=== PATIENT | female | born 1965 | race Caucasian/White ===

== ENCOUNTER → 2016-10-05 | Outpatient (CLI) | payer BC ==
--- NOTE | 2016-10-08 13:12 | MM ---
Reason for exam: screening (asymptomatic). Last mammogram was performed 1 year ago. History: Patient is postmenopausal. Physical Findings: A clinical breast exam by your physician is recommended on an annual basis and results should be correlated with mammographic findings. MG Screening Mammo w CAD Bilateral CC and MLO view(s) were taken. Prior study comparison: October 05, 2015, bilateral MG screening mammo w CAD. September 14, 2014, bilateral MG screening mammo w CAD. September 11, 2013, bilateral digital screening mammo w/CAD. The breast tissue is heterogeneously dense. This may lower the sensitivity of mammography. No significant changes when compared with prior studies. ASSESSMENT: Negative, BI-RAD 1 RECOMMENDATION: Routine screening mammogram of both breasts in 1 year.
== END | disposition home or self-care (01) ==
LOC: RADMAMWWP 08:31
PROVIDERS: ATTEND Internal Medicine
DX: Z12.31 Encounter for screening mammogram for malignant neoplasm of breast (principal)

== ENCOUNTER 2017-01-31 11:55 | Emergency (ER) | payer BC ==
[2017-01-31 12:09] VITALS: BP 130/79; PULSE 67; RESP 18; TEMP 98.5
[2017-01-31] MEDS ORDERED: KETOROLAC 60 MG/2 ML VIAL IM STA (12:13)
--- NOTE | 2017-01-31 12:17 | ED ---
General Adult HPI - General Chief complaint: Fall Stated complaint: fall Time Seen by Provider: 01/31/17 12:11 Source: patient, RN notes reviewed Mode of arrival: ambulatory Limitations: no limitations - History of Present Illness Initial comments: 51-year-old female presents emergency Department with a chief complaint of left- sided rib pain and left-sided hip pain after fall. Patient states that she was walking her dogs and she tripped on the wet grass. Patient states she now has pain to her left hip area as well as to her left rib. Patient states that last night she tried to go to work without success states she woke up with continued pain so she thought that she should be seen. There was no head injury with this incident. There is been no nausea vomiting. The patient states that it's tender to touch over the left side of her ribs as well as over her left pelvis bone. She has been able to ambulate. She has no low central back pain. There is no change the bar bladder habits or any saddle anesthesia. There is been no radiation pain down the legs. Patient states is just a constant type pain. Patient denies any recent fever, chills, shortness of breath, chest pain, back pain, abdominal pain, nausea vomiting, numbness or tingling, dysuria or hematuria, constipation or diarrhea, headaches or visual changes, or any other current symptoms. - Related Data Previous Rx's Medication Instructions Recorded Hydrocodone/Acetaminophen [Elizabeth 1 each PO Q6HR PRN #20 tab 01/31/17 5-325] Allergies Allergy/AdvReac Type Severity Reaction Status Date / Time No Known Allergies Allergy Verified 01/31/17 12:09 Review of Systems ROS Statement: Those systems with pertinent positive or pertinent negative responses have been documented in the HPI. ROS Other: All systems not noted in ROS Statement are negative. Past Medical History Past Medical History: No Reported History Additional Past Medical History / Comment(s): 4 herniated discs in back. History of Any Multi-Drug Resistant Organisms: None Reported Past Surgical History: Orthopedic Surgery Past Psychological History: No Psychological Hx Reported Smoking Status: Current every day smoker Past Alcohol Use History: Occasional Past Drug Use History: None Reported General Exam - General Exam Comments Initial Comments: General: The patient is awake and alert, in no distress, and does not appear acutely ill. Eye: Pupils are equal, round and reactive to light, extra-ocular movements are intact; there is normal conjunctiva bilaterally. No signs of icterus. Ears, nose, mouth and throat: There are moist mucous membranes and no oral lesions. Neck: The neck is supple, there is no tenderness. Cardiovascular: There is a regular rate and rhythm. No murmur, rub or gallop is appreciated. Respiratory: Lungs are clear to auscultation, respirations are non-labored, breath sounds are equal. No wheezes, stridor, rales, or rhonchi. Tenderness over the left lateral rib cage and the posterior rib cage. Gastrointestinal: Soft, non-distended, non-tender abdomen without masses or organomegaly noted. There is no rebound or guarding present. No CVA tenderness. Bowel sounds are unremarkable. Back: There is no tenderness to palpation in the midline. There is no obvious deformity. No rashes noted. Musculoskeletal: Normal ROM, mild tenderness over the left pelvic bone. There is no pedal edema. There is no calf tenderness or swelling. Sensation intact. Pulses equal bilaterally 2+. Neurological: CN II-XII intact, There are no obvious motor or sensory deficits. Coordination appears grossly intact. Speech is normal. Skin: Skin is warm and dry and no rashes or lesions are noted. Psychiatric: Cooperative, appropriate mood & affect, normal judgment. Limitations: no limitations Course Vital Signs 01/31/17 12:05 Temperature 98.5 F Pulse Rate 67 Respiratory 18 Rate Blood Pressure 130/79 O2 Sat by Pulse 100 Oximetry Medical Decision Making - Medical Decision Making 51-year-old female presents emergency Department with a chief complaint of fall. This time patient underwent x-rays of her pelvis and her ribs where her tenderness is. This and they are negative. This was discussion was at his left -sided rib fracture. and left pelvic contusion. We discussed pain control. We discussed care for this. We discussed return parameters and follow-up and all the patient's questions. They stated they understood and they are in agreement plan. All questions have been answered. They'll be discharged. - Radiology Data Radiology results: report reviewed, image reviewed Disposition Clinical Impression: Fall, Contusion of left hip, Left rib fracture Disposition: HOME SELF-CARE Condition: Stable Instructions: Contusion in Adults (ED), Rib Fracture (ED) Additional Instructions: Please use medication as discussed. Please follow up with family doctor if symptoms have not improved over the next two days. Please return to the emergency room if your symptoms increase or worsen or for any other concerns. Prescriptions: Hydrocodone/Acetaminophen [Elizabeth 5-325] 1 each PO Q6HR PRN #20 tab PRN Reason: Pain Referrals: Ines Tolbert MD [Primary Care Provider] - 1-2 days Time of Disposition: 12:50
--- NOTE | 2017-01-31 12:43 | XR ---
EXAMINATION TYPE: XR ribs LT w pa chest xray DATE OF EXAM: 01/31/2017 CLINICAL HISTORY: Pain after a fall yesterday TECHNIQUE: Single frontal view of the chest is obtained. COMPARISON: None FINDINGS: There is no focal air space opacity, pleural effusion, or pneumothorax seen. The cardiac silhouette size is within normal limits. There is a solitary nondisplaced fracture of the posterior r im 8 on the left. IMPRESSION: 1. Acute solitary nondisplaced posterior rib fracture of rib 8 on the left. 2. No acute cardiopulmonary process.
--- NOTE | 2017-01-31 12:46 | XR ---
EXAMINATION TYPE: XR pelvis AP view DATE OF EXAM: 01/31/2017 CLINICAL HISTORY: Fall and pain in the pelvis. TECHNIQUE: A single AP view of the pelvis is obtained. COMPARISON: None. FINDINGS: There is no acute fracture/dislocation evident in the pelvis. The hip and sacroiliac join ts appear symmetric and unremarkable. Moderate degenerative changes of the femoral acetabular joints are seen as acetabular sourcil subchondral cysts, cephalad joint space narrowing, and acetabular scle rosis. Degenerative changes of the lumbosacral spine are also appreciated. The overlying soft tissue appears unremarkable. Probable old healed fracture of the right inferior pubic ramus seen as there is an osseous protuberance inferiorly towards the pubic symphysis. IMPRESSION: 1. There is no acute fracture or dislocation in the pelvis. 2. Degenerative changes of the femoral acetabular joints, lumbosacral spine, and probable old fractur e of the right inferior pubic ramus.
== END 2017-01-31 12:59 | disposition home or self-care (01) ==
LOC: EC 11:55
DX: S22.32XA Fracture of one rib, left side, initial encounter for closed fracture (principal); S70.02XA Contusion of left hip, initial encounter; F17.200 Nicotine dependence, unspecified, uncomplicated; W01.0XXA Fall on same level from slipping, tripping and stumbling without subsequent striking against object, initial encounter
CPT/HCPCS: 71101; 72170; 99283; 96372; J1885

== ENCOUNTER → 2017-10-30 | Outpatient (CLI) | payer BC ==
--- NOTE | 2017-11-01 08:54 | MM ---
Reason for exam: screening (asymptomatic). Last mammogram was performed 1 year and 1 month ago. History: Patient is postmenopausal. Physical Findings: A clinical breast exam by your physician is recommended on an annual basis and results should be correlated with mammographic findings. MG Screening Mammo w CAD Bilateral CC and MLO view(s) were taken. Prior study comparison: October 05, 2016, bilateral MG screening mammo w CAD. October 05, 2015, bilateral MG screening mammo w CAD. The breast tissue is heterogeneously dense. This may lower the sensitivity of mammography. No significant changes when compared with prior studies. ASSESSMENT: Benign, BI-RAD 2 RECOMMENDATION: Routine screening mammogram of both breasts in 1 year.
== END | disposition home or self-care (01) ==
LOC: RADMAMWWP 08:34
PROVIDERS: ATTEND Internal Medicine
DX: Z12.31 Encounter for screening mammogram for malignant neoplasm of breast (principal)
CPT/HCPCS: 77067

== ENCOUNTER 2018-04-23 11:42 | Inpatient (IN) | payer BC ==
[2018-04-23] MEDS ORDERED: AMPICILLIN-SULBACTAM 3 GM in SODIUM CHLORIDE 0.9% 100 ML IVPB STA (12:37)
[2018-04-23] MEDS ORDERED: DIPH,PERTUS(ACELL)TETVAC-LF 0.5 ML VIAL IM ONE (12:37)
[2018-04-23] MEDS ORDERED: RABIES VACCINE (PCEC) 2.5 UNIT KIT IM ONE (12:38)
[2018-04-23] MEDS ORDERED: ONDANSETRON 4 MG/2 ML VIAL IVP STA (12:38)
[2018-04-23] MEDS ORDERED: RABIES IMMUNE GLOB 150 UNIT/ML 10 ML VIAL IM ONE (12:38)
[2018-04-23] MEDS ORDERED: HYDROmorphone 1 MG/ML 1 ML SYRINGE IVP STA (12:38)
[2018-04-23] MEDS ORDERED: KETOROLAC 60 MG/2 ML VIAL IVP STA (12:38)
[2018-04-23] MEDS: SODIUM CHLORIDE 0.9% 500 ML 500 ML IV SCH ×2 (12:59→13:40)
--- NOTE | 2018-04-23 13:09 | ED ---
General Adult HPI - General Chief complaint: Animal Bite Stated complaint: Hand injury Time Seen by Provider: 04/23/18 11:50 Source: patient, RN notes reviewed Mode of arrival: ambulatory Limitations: no limitations - History of Present Illness Initial comments: This is a 52-year-old female who presents emergency Department with bilateral hand pain and swelling secondary to dog bites. Patient states on Saturday she had an altercation with an unknown dog and it bit her in both of her hands. Patient thought the pain and swelling would eventually go away but just gotten progressively worse so she decided come to the emergency department today per patient denies any fever chills per patient denies any significant drainage but she does have significant swelling. Patient's left middle finger is erythematous and is the most tender area on her left hand. Patient seen are aspect has a laceration on the palmar surface anatomy is the most tender area on the right hand. Patient has multiple other small superficial lacerations along with a couple other deeper lacerations. Patient denies being bitten any other area. Patient denies any ALLERGIES. Patient does not have a tetanus. Patient does not know whose dog it was. - Related Data Home Medications Medication Instructions Recorded Confirmed Hydrocodone/Acetaminophen [Otho 1 tab PO Q6H 04/23/18 04/23/18 10-325] Previous Rx's Medication Instructions Recorded Amoxic-Pot Clav 875-125Mg 1 tab PO Q12HR #20 tablet 04/28/18 [Augmentin 875-125] Nicotine 14Mg/24Hr Patch [Habitrol] 1 patch TRANSDERM DAILY #30 patch 04/28/18 Allergies Allergy/AdvReac Type Severity Reaction Status Date / Time No Known Allergies Allergy Verified 04/23/18 12:19 Review of Systems ROS Statement: Those systems with pertinent positive or pertinent negative responses have been documented in the HPI. ROS Other: All systems not noted in ROS Statement are negative. Past Medical History Past Medical History: No Reported History Additional Past Medical History / Comment(s): 4 herniated discs in back. History of Any Multi-Drug Resistant Organisms: None Reported Past Surgical History: Orthopedic Surgery Additional Past Surgical History / Comment(s): kolby tibia rt leg Past Anesthesia/Blood Transfusion Reactions: No Reported Reaction Past Psychological History: No Psychological Hx Reported Smoking Status: Current every day smoker Past Alcohol Use History: None Reported Past Drug Use History: None Reported - Past Family History Sister(s) Family Medical History: Cancer Additional Family Medical History / Comment(s): colon Mother Family Medical History: Diabetes Mellitus, Hypertension General Exam - General Exam Comments Initial Comments: GENERAL: Patient is well-developed and well-nourished. Patient is nontoxic and well- hydrated and is in moderate distress. ENT: Neck is soft and supple. No significant lymphadenopathy is noted. Oropharynx is clear. Moist mucous membranes. Neck has full range of motion without eliciting any pain. There is no thyroid enlargement and no masses were felt. EYES: The sclera were anicteric and conjunctiva were pink and moist. Extraocular movements were intact and pupils were equal round and reactive to light. Eyelids were unremarkable. PULMONARY: Unlabored respirations. Good breath sounds bilaterally. No audible rales rhonchi or wheezing was noted. CARDIOVASCULAR: There is a regular rate and rhythm without any murmurs gallops or rubs. Femoral pulses are equal bilaterally ABDOMEN: Soft and nontender with normal bowel sounds. No palpable organomegaly was noted. There is no palpable pulsatile mass. SKIN: Skin is clear with no lesions or rashes and otherwise unremarkable. NEUROLOGIC: Patient is alert and oriented x3. Cranial nerves II through XII are grossly intact. Motor and sensory are also intact. Normal speech, volume and content. Symmetrical smile. Cerebellar exam grossly intact. MUSCULOSKELETAL: Patient's right hand has 3 lacerations measuring about a centimeter each on the posterior aspect of the wrist has a 2 cm laceration to the thenar aspect of the thumb. Patient also has another 1 cm laceration to the palmar surface of the thumb over the proximal phalanx. Left hand has a of a laceration to the palm patient also has a 1 cm laceration to the palmar surface of the middle finger. Patient also has a laceration to the fourth finger at the MCP joint measuring about a centimeter and a another centimeter laceration at the PIP joint of the fourth finger. Patient also has multiple superficial lacerations of the left hand. LYMPHATICS: No significant lymphadenopathy is noted PSYCHIATRIC: Normal psychiatric evaluation. Normal interpersonal interactions appears functionally intact in deals appropriately with others. No signs of depression. No signs of anxiety. No delusions. No hallucinations. Limitations: no limitations Course Vital Signs 04/23/18 04/23/18 04/23/18 11:49 15:25 17:36 Temperature 98.7 F 97.9 F 97.8 F Pulse Rate 116 H 88 86 Respiratory 18 16 16 Rate Blood Pressure 137/76 139/83 120/73 O2 Sat by Pulse 95 97 98 Oximetry Medical Decision Making - Medical Decision Making EKG shows normal sinus rhythm at 89 bpm TX interval 1:30 QRS is 144 QT interval 394 QTC is 479 per patient's EKG shows a right bundle branch block there is no ST segment elevation or depression or T wave abnormalities are noted. X-ray showed no acute fractures or residual foreign bodies. Patient was given rabies immunoglobulin injections to multiple lacerations on both hands by myself and the rest was given to her via the nurse. Patient also is given rabies vaccine I spoke with Dr. Sheikh Dr. castellanos agreed to admit the patient admitted the patient I consult the workup and continued antibiotics and pain medicines. - Lab Data Result diagrams: 04/28/18 06:55 04/28/18 06:55 Lab Results 04/23/18 04/23/18 04/23/18 Range/Units 12:46 12:46 12:46 WBC 16.5 H (3.8-10.6) k/uL RBC 4.24 (3.80-5.40) m/uL Hgb 12.8 (11.4-16.0) gm/dL Hct 38.6 (34.0-46.0) % MCV 91.2 (80.0-100.0) fL MCH 30.3 (25.0-35.0) pg MCHC 33.2 (31.0-37.0) g/dL RDW 12.7 (11.5-15.5) % Plt Count 312 (150-450) k/uL Neutrophils % 82 % Lymphocytes % 11 % Monocytes % 6 % Eosinophils % 0 % Basophils % 0 % Neutrophils # 13.5 H (1.3-7.7) k/uL Lymphocytes # 1.9 (1.0-4.8) k/uL Monocytes # 1.0 (0-1.0) k/uL Eosinophils # 0.0 (0-0.7) k/uL Basophils # 0.0 (0-0.2) k/uL PT (9.0-12.0) sec INR (<1.2) APTT (22.0-30.0) sec Sodium 134 L (137-145) mmol/L Potassium 4.7 (3.5-5.1) mmol/L Chloride 101 (98-107) mmol/L Carbon Dioxide 23 (22-30) mmol/L Anion Gap 10 mmol/L BUN 9 (7-17) mg/dL Creatinine 0.40 L (0.52-1.04) mg/dL Est GFR (CKD-EPI)AfAm >90 (>60 ml/min/1.73 sqM) Est GFR (CKD-EPI)NonAf >90 (>60 ml/min/1.73 sqM) Glucose 112 H (74-99) mg/dL Plasma Lactic Acid Francisco 1.1 (0.7-2.0) mmol/L Calcium 10.4 H (8.4-10.2) mg/dL Total Bilirubin 1.0 (0.2-1.3) mg/dL AST 37 H (14-36) U/L ALT 16 (9-52) U/L Alkaline Phosphatase 78 (38-126) U/L Total Protein 8.1 (6.3-8.2) g/dL Albumin 4.5 (3.5-5.0) g/dL 04/23/18 Range/Units 12:46 WBC (3.8-10.6) k/uL RBC (3.80-5.40) m/uL Hgb (11.4-16.0) gm/dL Hct (34.0-46.0) % MCV (80.0-100.0) fL MCH (25.0-35.0) pg MCHC (31.0-37.0) g/dL RDW (11.5-15.5) % Plt Count (150-450) k/uL Neutrophils % % Lymphocytes % % Monocytes % % Eosinophils % % Basophils % % Neutrophils # (1.3-7.7) k/uL Lymphocytes # (1.0-4.8) k/uL Monocytes # (0-1.0) k/uL Eosinophils # (0-0.7) k/uL Basophils # (0-0.2) k/uL PT 10.5 (9.0-12.0) sec INR 1.1 (<1.2) APTT 23.8 (22.0-30.0) sec Sodium (137-145) mmol/L Potassium (3.5-5.1) mmol/L Chloride (98-107) mmol/L Carbon Dioxide (22-30) mmol/L Anion Gap mmol/L BUN (7-17) mg/dL Creatinine (0.52-1.04) mg/dL Est GFR (CKD-EPI)AfAm (>60 ml/min/1.73 sqM) Est GFR (CKD-EPI)NonAf (>60 ml/min/1.73 sqM) Glucose (74-99) mg/dL Plasma Lactic Acid Francisco (0.7-2.0) mmol/L Calcium (8.4-10.2) mg/dL Total Bilirubin (0.2-1.3) mg/dL AST (14-36) U/L ALT (9-52) U/L Alkaline Phosphatase (38-126) U/L Total Protein (6.3-8.2) g/dL Albumin (3.5-5.0) g/dL Disposition Clinical Impression: Dog bite, Laceration of multiple sites of hand and fingers, Need for rabies vaccination, Cellulitis of hand Disposition: ADMITTED IP TO THIS [facility] Time of Disposition: 15:56
[2018-04-23 13:23] LABS: Basophils % (A) 0 %; Eosinophils % (A) 0 %; HCT 38.6 % (34.0-46.0); HGB 12.8 gm/dL (11.4-16.0); Lymphocytes # (A) 1.9 k/uL (1.0-4.8); Lymphocytes % (A) 11 %; MCH 30.3 pg (25.0-35.0); MCHC 33.2 g/dL (31.0-37.0); MCV 91.2 fL (80.0-100.0); Mean Platelet Volume 7.2; Monocytes % (A) 6 %; Neutrophils # (A) 13.5 k/uL (1.3-7.7); Neutrophils % (A) 82 %; Platelet Count 312 k/uL (150-450); RBC 4.24 m/uL (3.80-5.40); RDW 12.7 % (11.5-15.5); WBC 16.5 k/uL (3.8-10.6)
[2018-04-23 13:31] LABS: INR 1.1 (<1.2); Partial Thromboplastin Time 23.8 sec (22.0-30.0); Prothrombin Time 10.5 sec (9.0-12.0)
[2018-04-23 13:37] LABS: ALT 16 U/L (9-52); AST 37 U/L (14-36); Albumin 4.5 g/dL (3.5-5.0); Alkaline Phosphatase 78 U/L (38-126); Anion Gap 10 mmol/L; Blood Urea Nitrogen 9 mg/dL (7-17); Calcium 10.4 mg/dL (8.4-10.2); Carbon Dioxide 23 mmol/L (22-30); Chloride 101 mmol/L (98-107); Glucose 112 mg/dL (74-99); Sodium 134 mmol/L (137-145); Total Protein 8.1 g/dL (6.3-8.2)
[2018-04-23 13:56] LABS: Potassium 4.7 mmol/L (3.5-5.1)
--- NOTE | 2018-04-23 15:56 | XR ---
EXAMINATION TYPE: XR hand complete bilateral DATE OF EXAM: 04/23/2018 COMPARISON: NONE HISTORY: 52-year-old female multiple animal bites to both hands, pain and swelling, right greater karen n left. TECHNIQUE: 3 views each side FINDINGS: Tiny ossific density adjacent to the right ulnar styloid process suggests either accessory ossicle or sequela of remote trauma. Degenerative changes at the right greater than left first CMC joints with marginal spurring. Joint space narrowing on the right. Some scattered DIP joint osteoarthritic spurri ng noted on the right. No acute fracture, subluxation, or dislocation. Dorsal soft tissue swelling on the right. IMPRESSION: Some scattered osteoarthritic changes particularly on the right. Dorsal soft tissue swelling on the r ight. No acute osseous abnormality seen on either side.
[2018-04-23] MEDS ORDERED: SODIUM CHLORIDE 0.9% 1,000 ML IV ONE (16:04)
[2018-04-23] MEDS: HYDROmorphone 1 MG/ML 1 ML SYRINGE IVP PRN (17:16)
[2018-04-23] MEDS ORDERED: TEMAZEPAM 15 MG CAP PO PRN (17:48)
[2018-04-23] MEDS: AMPICILLIN-SULBACTAM 3 GM in SODIUM CHLORIDE 0.9% 100 ML IVPB SCH (19:28)
[2018-04-23] MEDS: HYDROcodone/APAP 10-325MG 1 EACH TAB PO SCH (19:30)
[2018-04-23] MEDS: KETOROLAC 30 MG/ML 1 ML VIAL IVP SCH (19:31)
[2018-04-23] MEDS: HEPARIN SODIUM,PORCINE 5,000 UNIT/ML 1 ML VIAL SQ SCH (19:43)
[2018-04-23] MEDS ORDERED: ALPRAZolam 0.25 MG TAB PO PRN (19:47)
--- NOTE | 2018-04-23 21:02 | HP ---
HISTORY AND PHYSICAL CHIEF COMPLAINT: Dog bite. HISTORY OF PRESENT ILLNESS: This 52-year-old woman with a past medical history of multiple medical problems including history of herniated disc, history of orthopedic surgery, history of leg being followed by Dr. Tolbert in the outpatient setting was apparently walking a dog [place] about 2 days ago and apparently a stray dog jumped at her and startled her and the dog bit the patient's both hands which swelled during the last 2 days. The patient came to [facility] and was admitted for further evaluation and treatment. There is no history of fever, rigors. No history of headache, loss of consciousness, seizures. Patient was seen by the ER and rabies shots also given. Hand x-ray was done which showed scattered osteoarthritic changes, otherwise no fractures. There is no history of fever, rigors. No history of headache, loss of consciousness or seizures. PAST MEDICAL HISTORY: DJD as mentioned earlier. Nicotine dependence. MEDICATIONS ARE: [place] 10 mg q.6h p.r.n. ALLERGIES: None. FAMILY HISTORY: History of colon cancer in the family. SOCIAL HISTORY: History of smoking. REVIEW OF SYSTEMS: ENT: No diminished hearing or vision. CARDIOVASCULAR: No angina or palpitations. RESPIRATORY: As mentioned earlier. GI: No nausea or vomiting. no dysuria. Nervous system: No numbness or weakness. Allergy/Immunology: No asthma or hayfever. Musculoskeletal: As mentioned earlier. HEMATOLOGY/ONCOLOGY: No history of anemia. Endocrine: No history of diabetes or hypothyroidism. Constitutional: As mentioned earlier. Dermatology: Negative. Rheumatology: Negative. Psychiatry: As mentioned earlier. PHYSICAL EXAMINATION: Alert, oriented times three, pulse 86, blood pressure 127/70, respiration 16, temperature 97.8, pulse ox 98% on room air. HEENT is conjunctivae normal. Oral mucosa moist. Neck is no jugular venous distention. No carotid bruit. No lymph node enlargement. Cardiovascular systems: S1, S2. Respirations: Breath sounds diminished in the bases. No rhonchi. No crackles. ABDOMEN: Soft, nontender. No mass palpable. LEGS: No edema. No swelling. NERVOUS SYSTEM: Higher functions as mentioned earlier. Moves all four extremities. No focal motor deficits. Lymphatics: No lymph nodes palpable in the neck, axillae or groin. SKIN: Significant erythema, swelling of both hands, right more than the left with significant bite taylor also present. Tender. Both hands are swollen and movements of the wrist and other joints also painful. LAB: Investigations at this time shows WBC 16.1, hemoglobin 12.8, sodium 134, calcium 10.4. ASSESSMENT: 1. Bilateral hand cellulitis with possible early sepsis secondary to dog bite. 2. Bilateral leg swelling. 3. Increased WBC. 4. Hyponatremia. 5. Hypercalcemia. 6. History of herniated disc. 7. History of nicotine dependence. RECOMMENDATIONS AND DISCUSSION: In this 52-year-old woman who presented with multiple complex medical issues, we will monitor the patient closely. We will initiate broad-spectrum IV antibiotics. Orthopedic evaluation. Infectious disease evaluation. DVT prophylaxis. Smoking cessation advised. Otherwise, repeat labs. Guarded prognosis because of multiple complex medical issues. Further recommendations to follow. A copy forwarded to Dr. Tolbert who is the primary physician. MMODL / IJN: [id number] / MTDD
[2018-04-24] MEDS: HYDROcodone/APAP 10-325MG 1 EACH TAB PO SCH ×5 (00:12→23:42)
[2018-04-24] MEDS: AMPICILLIN-SULBACTAM 3 GM in SODIUM CHLORIDE 0.9% 100 ML IVPB SCH ×5 (00:12→23:42)
[2018-04-24] MEDS: KETOROLAC 30 MG/ML 1 ML VIAL IVP SCH ×5 (00:13→23:41)
[2018-04-24 07:33] LABS: Basophils % (A) 0 %; Eosinophils % (A) 0 %; HCT 33.6 % (34.0-46.0); HGB 10.8 gm/dL (11.4-16.0); Lymphocytes % (A) 10 %; MCH 30.5 pg (25.0-35.0); MCHC 32.1 g/dL (31.0-37.0); MCV 94.9 fL (80.0-100.0); Monocytes # (A) 0.5 k/uL (0-1.0); Monocytes % (A) 5 %; Neutrophils % (A) 83 %; Platelet Count 254 k/uL (150-450); RBC 3.54 m/uL (3.80-5.40); RDW 12.6 % (11.5-15.5); WBC 9.6 k/uL (3.8-10.6)
[2018-04-24 07:45] LABS: Anion Gap 3 mmol/L; Blood Urea Nitrogen 15 mg/dL (7-17); Calcium 9.1 mg/dL (8.4-10.2); Carbon Dioxide 24 mmol/L (22-30); Chloride 111 mmol/L (98-107); Glucose 93 mg/dL (74-99); Sodium 138 mmol/L (137-145)
--- NOTE | 2018-04-24 08:39 | P.CNOR ---
History of Present Illness - [facility] Consult date: 04/24/18 Consult reason: other (Multiple dog bites bilateral hands) History of present illness: This is a 52-year-old left-handed female who was attacked by a stray dog on and was bitten multiple times in both hands. She states that she was startled by the dog and reacted causing the dog to jump. She states that she locally treated her wounds initially but then developed swelling and increased pain to both hands. She was seen in the emergency department yesterday, 2017 and admitted for IV antibiotics and evaluation. Her white count has come down to normal since yesterday. We're consulted for orthopedic evaluation of her multiple wounds. Past Medical History Past Medical History: No Reported History Additional Past Medical History / Comment(s): 4 herniated discs in back. History of Any Multi-Drug Resistant Organisms: None Reported Past Surgical History: Orthopedic Surgery Additional Past Surgical History / Comment(s): kolby tibia rt leg Past Anesthesia/Blood Transfusion Reactions: No Reported Reaction Smoking Status: Current every day smoker - Past Family History Sister(s) Family Medical History: Cancer Additional Family Medical History / Comment(s): colon Mother Family Medical History: Diabetes Mellitus, Hypertension Medications and Allergies Home Medications Medication Instructions Recorded Confirmed Type Hydrocodone/Acetaminophen [[place] 1 tab PO Q6H 04/23/18 04/23/18 History 10-325] Allergies Allergy/AdvReac Type Severity Reaction Status Date / Time No Known Allergies Allergy Verified 04/23/18 12:19 Physical Examination This is a pleasant 52-year-old female in no acute distress. She is alert and oriented 3. Exam of the upper extremities reveals multiple superficial lacerations to bilateral hands. On the right hand there is a deeper laceration noted to the thenar eminence and in the webspace between the thumb and index finger. There is no active drainage at this time. There is increased swelling to the hand including the thumb. She is able to wiggle the thumb slightly with minimal pain. Exam of the left hand reveals, again, multiple superficial scratches and lacerations. Less swelling to the left hand compared to the right. There is an area of purulent drainage from the dorsum of the ring finger just distal to the PIP joint. There is limited range of motion of this joint. Capillary refills less than 3 seconds to all fingers. Neurovascular status the upper extremities is intact. Results X-rays of bilateral hands reveal no obvious fracture or dislocation. Mild arthritic changes throughout both hands. - Labs Labs: Abnormal Lab Results - Last 24 Hours (Table) 04/23/18 04/23/18 04/24/18 Range/Units 12:46 12:46 07:05 WBC 16.5 H (3.8-10.6) k/uL RBC 3.54 L (3.80-5.40) m/uL Hgb 10.8 L (11.4-16.0) gm/dL Hct 33.6 L (34.0-46.0) % Neutrophils # 13.5 H 8.0 H (1.3-7.7) k/uL Sodium 134 L (137-145) mmol/L Chloride (98-107) mmol/L Creatinine 0.40 L (0.52-1.04) mg/dL Glucose 112 H (74-99) mg/dL Calcium 10.4 H (8.4-10.2) mg/dL AST 37 H (14-36) U/L 04/24/18 Range/Units 07:05 WBC (3.8-10.6) k/uL RBC (3.80-5.40) m/uL Hgb (11.4-16.0) gm/dL Hct (34.0-46.0) % Neutrophils # (1.3-7.7) k/uL Sodium (137-145) mmol/L Chloride 111 H (98-107) mmol/L Creatinine (0.52-1.04) mg/dL Glucose (74-99) mg/dL Calcium (8.4-10.2) mg/dL AST (14-36) U/L H & H 04/23/18 04/24/18 Range/Units 12:46 07:05 Hgb 12.8 10.8 L (11.4-16.0) gm/dL Hct 38.6 33.6 L (34.0-46.0) % Coagulation 04/23/18 Range/Units 12:46 INR 1.1 (<1.2) Result Diagrams: 04/24/18 07:05 04/24/18 07:05 Assessment and Plan (1) Cellulitis of hand Current Visit: Yes Status: Acute Code(s): L03.119 - CELLULITIS OF UNSPECIFIED PART OF LIMB SNOMED Code(s): 54546850 (2) Dog bite Current Visit: Yes Status: Acute Code(s): W54.0XXA - BITTEN BY DOG, INITIAL ENCOUNTER SNOMED Code(s): 553331511 (3) Laceration of multiple sites of hand and fingers Current Visit: Yes Status: Acute Code(s): S61.419A - LACERATION WITHOUT FOREIGN BODY OF UNSP HAND, INIT ENCNTR; S61.219A - LACERATION W/O FB OF UNSP FINGER W/O DAMAGE TO NAIL, INIT SNOMED Code(s): 430100515 Plan: The clinical and x-ray findings are discussed with the patient. She has improved since her admission last evening. I recommend warm soaks with Hibiclens soap 3 times daily and I have added K pad to the hands as tolerated. Continue IV Unasyn as prescribed. I will make her nothing by mouth after midnight tonight just in case the need arises for surgical debridement. If she continues to improve there will be no need for surgical intervention. We'll continue to follow.
[2018-04-24] MEDS: PANTOPRAZOLE 40 MG TABLET PO SCH (08:57)
[2018-04-24] MEDS: HEPARIN SODIUM,PORCINE 5,000 UNIT/ML 1 ML VIAL SQ SCH ×2 (08:57→20:07)
[2018-04-24] MEDS: NICOTINE 14MG/24HR PATCH TRANSDERM SCH (08:57)
[2018-04-24] MEDS: HYDROmorphone 1 MG/ML 1 ML SYRINGE IVP PRN ×2 (09:02→22:14)
[2018-04-24] MEDS ORDERED: GENTAMICIN PER PHARMACY MISCELLANE PRN (11:28)
[2018-04-24] MEDS: GENTAMICIN 120 MG in SODIUM CHLORIDE 0.9% 100 ML IVPB SCH ×2 (15:57→20:07)
--- NOTE | 2018-04-24 22:09 | PN ---
PROGRESS NOTE DATE OF SERVICE: 04/24/2018 This 52-year-old woman was admitted with dog bite and significant bilateral hand cellulitis. The patient is being closely monitored. No chest pain. No palpitations. No fever. Infectious disease is following the patient closely. Orthopedics also seeing the patient. EXAM: Alert and oriented. Pulse 97, blood pressure 139/68, respirations 16, temperature 98.6, pulse ox 97% room air HEENT: Conjunctivae normal. Neck: No jugular venous distention. Cardiovascular: S1, S2, Respiratory: Diminished breath sounds in the bases. Scattered rhonchi, no crackles. Abdomen is soft, nontender. Legs: No edema. Nervous system: No focal deficits. Extremities show bilateral arm swelling and hand swelling. Also, with multiple bite taylor, right more than the left. LABS: WBC 9.2, hemoglobin 10.8, sodium 138. ASSESSMENT: 1. Bilateral hand cellulitis with possible early sepsis secondary to dog bite. 2. Increased WBC. 3. Hypernatremia. 4. Hypercalcemia. 5. Herniated disc. 6. History of nicotine dependence. RECOMMENDATIONS: Continue current management and continue with broad-spectrum IV antibiotics. Patient is on Unasyn. Closely follow with orthopedic surgery for possible surgical intervention. Otherwise, continue to monitor. Infectious Disease has been consulted. Further recommendation to follow. MMODL / IJN: [id number] /
[2018-04-25] MEDS: AMPICILLIN-SULBACTAM 3 GM in SODIUM CHLORIDE 0.9% 100 ML IVPB SCH ×3 (05:35→17:23)
[2018-04-25] MEDS: HYDROcodone/APAP 10-325MG 1 EACH TAB PO SCH ×3 (05:38→17:20)
[2018-04-25] MEDS: KETOROLAC 30 MG/ML 1 ML VIAL IVP SCH ×3 (06:26→17:22)
[2018-04-25] MEDS: GENTAMICIN 120 MG in SODIUM CHLORIDE 0.9% 100 ML IVPB SCH ×2 (06:26→15:06)
[2018-04-25 08:00] LABS: Basophils % (A) 0 %; Eosinophils % (A) 1 %; HCT 32.1 % (34.0-46.0); HGB 10.3 gm/dL (11.4-16.0); Lymphocytes # (A) 0.9 k/uL (1.0-4.8); Lymphocytes % (A) 10 %; MCH 30.4 pg (25.0-35.0); MCHC 31.9 g/dL (31.0-37.0); MCV 95.1 fL (80.0-100.0); Mean Platelet Volume 7.6; Monocytes # (A) 0.5 k/uL (0-1.0); Monocytes % (A) 6 %; Neutrophils # (A) 6.8 k/uL (1.3-7.7); Neutrophils % (A) 82 %; Platelet Count 277 k/uL (150-450); RBC 3.38 m/uL (3.80-5.40); RDW 12.7 % (11.5-15.5); WBC 8.3 k/uL (3.8-10.6)
[2018-04-25 08:10] LABS: Anion Gap 5 mmol/L; Blood Urea Nitrogen 13 mg/dL (7-17); Calcium 9.1 mg/dL (8.4-10.2); Carbon Dioxide 23 mmol/L (22-30); Chloride 110 mmol/L (98-107); Glucose 93 mg/dL (74-99); Potassium 4.2 mmol/L (3.5-5.1); Sodium 138 mmol/L (137-145)
[2018-04-25] MEDS: NICOTINE 14MG/24HR PATCH TRANSDERM SCH (09:04)
[2018-04-25] MEDS: PANTOPRAZOLE 40 MG TABLET PO SCH (09:04)
[2018-04-25] MEDS: HEPARIN SODIUM,PORCINE 5,000 UNIT/ML 1 ML VIAL SQ SCH ×2 (09:04→21:02)
--- NOTE | 2018-04-25 09:09 | P.PN ---
Subjective Progress Note Date: 04/25/18 Principal diagnosis: S/P Dog bite bilateral hands. Cellulitis bilateral hands. This is a 52-year-old female who we are following regarding her bilateral hand cellulitis secondary to multiple dog bites. Gentamicin was added to her antibiotics yesterday. She has been performing warm soaks and has K pad. States that the left hand is improved today. She continues to have pain and swelling to the right hand. Objective - Vital Signs Vital signs: Vital Signs Temp 98.7 F 04/25/18 05:00 Pulse 82 04/25/18 05:00 Resp 16 04/25/18 05:00 BP 117/66 04/25/18 05:00 Pulse Ox 98 04/25/18 05:00 Intake & Output 04/24/18 04/25/18 04/25/18 18:59 06:59 18:59 Intake Total 100 790 Balance 100 790 Weight 51 kg Intake: Intake, IV Titration 100 200 Amount Ampicillin-Sulbactam 3 gm 100 In Sodium Chloride 0.9% 100 ml @ 200 mls/hr IVPB Q6HR [facility] Rx#:[id number] Gentamicin 120 mg In 100 100 Sodium Chloride 0.9% 100 ml @ 103 mls/hr IVPB Q8H [facility] Rx#:[id number] Oral 590 Other: Voiding Method Toilet # Voids 2 - Exam This is a pleasant 52-year-old female in no acute distress. She is alert and oriented 3. Exam of the bilateral hands reveals improved left hand with less swelling and less erythema. Right hand has slightly less erythema. Fingers are slightly less swollen but she continues to have swelling about the hand on the dorsal and palmar surface. No active drainage noted. She has slight limitation in finger motion secondary to pain and swelling. Neurovascular status the upper extremity is intact. - Labs CBC & Chem 7: 04/25/18 07:12 04/25/18 07:12 Labs: Abnormal Lab Results - Last 24 Hours (Table) 04/25/18 04/25/18 Range/Units 07:12 07:12 RBC 3.38 L (3.80-5.40) m/uL Hgb 10.3 L (11.4-16.0) gm/dL Hct 32.1 L (34.0-46.0) % Lymphocytes # 0.9 L (1.0-4.8) k/uL Chloride 110 H (98-107) mmol/L Creatinine 0.42 L (0.52-1.04) mg/dL Microbiology - Last 24 Hours (Table) 04/24/18 Unknown Gram Stain - Preliminary Hand - Right Wound Culture - Preliminary 04/23/18 12:46 Blood Culture - Preliminary Blood No Growth after 24 hours Assessment and Plan (1) Cellulitis of hand Current Visit: Yes Status: Acute Code(s): L03.119 - CELLULITIS OF UNSPECIFIED PART OF LIMB SNOMED Code(s): 56531105 (2) Dog bite Current Visit: Yes Status: Acute Code(s): W54.0XXA - BITTEN BY DOG, INITIAL ENCOUNTER SNOMED Code(s): 484069292 (3) Laceration of multiple sites of hand and fingers Current Visit: Yes Status: Acute Code(s): S61.419A - LACERATION WITHOUT FOREIGN BODY OF UNSP HAND, INIT ENCNTR; S61.219A - LACERATION W/O FB OF UNSP FINGER W/O DAMAGE TO NAIL, INIT SNOMED Code(s): 689863241 Plan: The clinical and x-ray findings are discussed with the patient. Findings are discussed with Dr. Madrigal. I've ordered a computed tomography scan for further evaluation of the right hand to determine if there is any abscess formation that could be drained. I've made her nothing by mouth after midnight tonight and boarded surgery for tomorrow morning if needed.
[2018-04-25] MEDS: HYDROmorphone 1 MG/ML 1 ML SYRINGE IVP PRN ×2 (09:17→21:00)
--- NOTE | 2018-04-25 12:07 | CONS ---
CONSULTATION DATE OF SERVICE: 04/24/2018. REASON FOR CONSULTATION: Bilateral hand dog bite cellulitis. HISTORY OF PRESENT ILLNESS: The patient is a 52-year-old female, who has been attacked by a stray dog on 04/21/2018 and the patient had multiple bites on both hand mostly marked on the right hand. The patient presenting to the ER within 48 hours with chief complaints of increasing pain and swelling and redness to the hand, mostly on the right hand. She did have multiple puncture wounds with minimal drainage. With these symptoms, the patient was evaluated by the ER physician. Patient did on arrival to the ER has been afebrile. Her white count was elevated at 16.5. Blood cultures obtained which are currently pending. She did have x-rays of the hand which did not show any evidence of a bony changes. The patient was started on Unasyn and infectious disease was consulted for further recommendations regarding antibiotic therapy. The patient's pain and swelling is mostly to the right hand with multiple bite taylor. The pain described to be throbbing 6 to 8/10, and no radiation. The patient denies having any chest pain and no shortness of breath or cough. No abdominal pain. No diarrhea. REVIEW OF SYSTEMS: CONSTITUTIONAL: Positive for weakness. No fever. Eyes no complaint. ENT no complaint. Respiratory no complaint. Cardiovascular no complaint. Genitourinary no complaint. Gastrointestinal: No complaint. Musculoskeletal as per HPI. INTEGUMENTARY as per HPI. Psychological no complaint. Endocrine no complaint. Neurologic no complaint. PAST MEDICAL HISTORY: Chronic back pain from herniated disc. of the right leg. SOCIAL HISTORY: Current everyday smoker. No drinking or drug use. FAMILY HISTORY: Sister with history of colon cancer. Mother with history of diabetes and hypertension. ALLERGIES: No known drug allergies. MEDICATIONS: Medications include the patient is currently on Unasyn 3 g q.6 hours, gentamicin 1-2 mg, heparin, nicotine patch, Protonix, and Restoril. EXAMINATION: Blood pressure is 129/60 with a pulse of 97, temperature 98.6. She is 97% on room air. General description is a middle-aged female up in the bed in no distress. No tachypnea or accessory muscles of respiration use. HEENT: Shows no pallor or scleral icterus. Oral mucosa membranes are dry. No pharyngeal erythema or thrush. Neck trachea central. No thyromegaly. Lungs unlabored breathing. Clear to auscultation anteriorly. No wheeze or crackles. Heart S1, S2. Regular rate and rhythm. ABDOMEN: Soft, no tenderness. No guarding or rigidity. Extremities: No edema of the feet. Examination of right hand which has been swollen with multiple puncture wounds, 1 of the wounds on the dorsum of the hand showing slight purulent drainage which was cultured. She did have redness as well as warm to touch and tender. Neurologically: Patient is awake, alert, oriented x3. Mood and affect normal. LABS: Hemoglobin is 10.8, white count 13.5 with a BUN of 15, creatinine 0.54. Electrolytes have been normal. Liver enzymes are normal. Lactic acid 1.1. Blood culture obtained currently pending. X-rays of the hand with soft tissue swelling but no bony changes. DIAGNOSTIC IMPRESSION AND PLAN: Patient with bilateral hand dog bite cellulitis, which is more marked on the right hand with multiple puncture wounds with minimal purulent secretions likely from a gram- negative oral fredo less likely gram-positive infection. PLAN: 1. Wound culture has been obtained to guide antibiotic therapy. 2. Unasyn 3 g IV piggyback q.6 hours. 3. We will follow up on clinical condition and culture to further adjust medication if needed. Thank you for this consultation. We will follow this patient along with you. MMODL / IJN: [id number] /
--- NOTE | 2018-04-25 12:12 | CT ---
EXAMINATION TYPE: CT hand RT w con DATE OF EXAM: 04/25/2018 COMPARISON: Radiographs of the right hand from 04/23/2018 HISTORY: Right hand swelling for [address] DLP: 160.5 mGycm Automated exposure control for dose reduction was used. CONTRAST: Performed with IV Contrast, patient injected with 100 mL of Isovue 300. FINDINGS: There is diffuse dorsal soft tissue swelling of the hand most pronounced over the metatarsals with th ickness measuring up to 1.4 cm. Phlegmonous changes are seen throughout with no focal well-defined fl uid collection to suggest abscess. There is minimal skin thickening appreciated measuring 1 mm. No ra diopaque foreign body is identified. There is no evidence of acute fracture or dislocation of the right hand. Mild degenerative changes ar e seen at the first metacarpal phalangeal joint and first carpometacarpal joint as well as at the dis braulio interphalangeal joints displayed as small osteophytes and joint space narrowing. Carpal carpal in terspaces are maintained. No suspicious osseous lesion is seen. IMPRESSION: DIFFUSE SOFT TISSUE SWELLING OF THE DORSAL RIGHT HAND, PHLEGMONOUS CHANGES AND MINIMAL SKIN THICKENIN G SUGGESTIVE OF CELLULITIS WITH NO DISCRETE CIRCUMSCRIBED FLUID COLLECTION TO SUGGEST ABSCESS. NO RAD IOPAQUE RETAINED FOREIGN BODY IS SEEN. NO EVIDENCE OF ACUTE FRACTURE OR DISLOCATION OF THE RIGHT HAND . MILD ARTHROPATHY IN THE DISTRIBUTION OF OSTEOARTHRITIS.
[2018-04-25] MEDS ORDERED: GENTAMICIN TROUGH DUE 1 EACH MISC MISCELLANE ONE (13:00)
[2018-04-25] MEDS ORDERED: GENTAMICIN PEAK DUE 1 EACH MISC MISCELLANE ONE (15:30)
--- NOTE | 2018-04-25 19:49 | PN ---
PROGRESS NOTE DATE OF SERVICE: 04/25/2018 This 52-year-old woman who was admitted with bilateral hand cellulitis is being closely monitored. Patient still has significant swelling of the right hand also. Orthopedic Surgery is following the patient closely. A CT scan of the hand showed diffuse soft tissue swelling and some phlegmon changes and minimal skin thickening. No abscess was noted. No chest pain. No palpitations. No fever. PHYSICAL EXAM: Alert and oriented x3. Pulse is 82, blood pressure 117/66, respirations 16, temperature 98.2, pulse ox 98 percent on room air. HEENT: Conjunctivae normal. NECK: No jugular venous distention. CARDIOVASCULAR: S1, S2. RESPIRATORY: Breath sounds diminished in the bases. A few rhonchi, no crackles. ABDOMEN: Soft, nontender. LEGS: No edema. No swelling. Examination of the hand: Multiple bite taylor on the left hand, which is much improved. Right hand significant swelling as mentioned earlier. LABS: WBC 8, hemoglobin 10.3. ASSESSMENT: 1. Bilateral hand cellulitis with possible early sepsis secondary to dog bite. 2. Increased WBC. 3. Hyponatremia. 4. Hypocalcemia. 5. Herniated disc. 6. History of degenerative joint disease. 7. History of nicotine dependence. RECOMMENDATIONS AND DISCUSSION: I recommend to continue current medications, continue with monitoring and symptomatic treatment. Otherwise at this time, will monitor the patient closely. Otherwise continue the antibiotics. Orthopedic evaluation. Surgical intervention per Orthopedic Surgery. Further recommendations to follow. MMODL / IJN: [id number] / MTDD
[2018-04-26] MEDS: HYDROcodone/APAP 10-325MG 1 EACH TAB PO SCH ×5 (00:14→23:59)
[2018-04-26] MEDS: KETOROLAC 30 MG/ML 1 ML VIAL IVP SCH ×4 (00:15→17:59)
[2018-04-26] MEDS: AMPICILLIN-SULBACTAM 3 GM in SODIUM CHLORIDE 0.9% 100 ML IVPB SCH ×4 (00:16→17:54)
--- NOTE | 2018-04-26 02:01 | PN ---
PROGRESS NOTE DATE OF SERVICE: 04/25/2018. REASON FOR FOLLOWUP: Right hand dog bite cellulitis. INTERVAL HISTORY: The patient is afebrile. She still has pain and swelling of the right hand. However, has slightly decreased intensity. Small drainage. Denies any chest pain, shortness of breath or cough. No abdominal pain. No diarrhea. EXAMINATION: Blood pressure 114/60 with a pulse of 53. Temperature 97.9. She is 97% on room air. General description is a middle-aged female lying in bed in no distress. Respiratory system: Unlabored breathing, clear to auscultation anteriorly. Heart S1, S2. Regular rate and rhythm. ABDOMEN: Soft, no tenderness. Right hand with some swelling, minimal redness, slightly warm to touch. LABS: BUN of 13, creatinine 0.4. Hemoglobin is 10. White count 8.3. CT was negative for any abscess. Wound culture so far negative. Blood cultures negative. DIAGNOSTIC IMPRESSION AND PLAN: 1. Patient with right hand dog bite cellulitis. We will keep the patient on Unasyn 3 g every 6 hours in view of extensive infection, however, discontinue gentamicin to decrease risk of nephrotoxicity. 2. Patient will complete her rabies vaccination. 3. Continue supportive care. MMODL / IJN: [id number] /
[2018-04-26] MEDS: HYDROmorphone 1 MG/ML 1 ML SYRINGE IVP PRN ×3 (04:40→21:57)
[2018-04-26 07:41] LABS: Basophils % (A) 0 %; Eosinophils # (A) 0.1 k/uL (0-0.7); Eosinophils % (A) 1 %; HCT 31.7 % (34.0-46.0); HGB 10.1 gm/dL (11.4-16.0); Lymphocytes % (A) 15 %; MCH 29.5 pg (25.0-35.0); MCHC 31.8 g/dL (31.0-37.0); MCV 92.8 fL (80.0-100.0); Mean Platelet Volume 6.8; Monocytes # (A) 0.5 k/uL (0-1.0); Monocytes % (A) 7 %; Neutrophils # (A) 5.1 k/uL (1.3-7.7); Neutrophils % (A) 75 %; Platelet Count 330 k/uL (150-450); RBC 3.41 m/uL (3.80-5.40); RDW 12.5 % (11.5-15.5); WBC 6.8 k/uL (3.8-10.6)
[2018-04-26] MEDS: HEPARIN SODIUM,PORCINE 5,000 UNIT/ML 1 ML VIAL SQ SCH ×2 (07:52→20:30)
[2018-04-26] MEDS: PANTOPRAZOLE 40 MG TABLET PO SCH (07:53)
[2018-04-26] MEDS: NICOTINE 14MG/24HR PATCH TRANSDERM SCH (07:53)
[2018-04-26 08:11] LABS: Anion Gap 6 mmol/L; Blood Urea Nitrogen 9 mg/dL (7-17); Calcium 9.3 mg/dL (8.4-10.2); Carbon Dioxide 27 mmol/L (22-30); Chloride 105 mmol/L (98-107); Glucose 93 mg/dL (74-99); Potassium 4.1 mmol/L (3.5-5.1); Sodium 138 mmol/L (137-145)
--- NOTE | 2018-04-26 08:24 | P.PN ---
Subjective Progress Note Date: 04/26/18 Principal diagnosis: S/P Dog bite bilateral hands. Cellulitis bilateral hands. This is a 52-year-old female who we are following regarding her bilateral hand cellulitis secondary to multiple dog bites. She continues on Unasyn and gentamicin. She has been performing warm soaks and has K pad. Computed tomography scan of the hand showed no abscess formation. States that the left hand is improved today. She continues to have pain and swelling to the right hand. Objective - Vital Signs Vital signs: Vital Signs Temp 97.9 F 04/25/18 21:48 Pulse 64 04/26/18 00:00 Resp 18 04/26/18 00:00 BP 114/60 04/25/18 21:48 Pulse Ox 97 04/25/18 21:48 Intake & Output 04/25/18 04/26/18 04/26/18 18:59 06:59 18:59 Intake Total 300 Balance 300 Weight 51 kg Intake: Intake, IV Titration 300 Amount Ampicillin-Sulbactam 3 gm 200 In Sodium Chloride 0.9% 100 ml @ 200 mls/hr IVPB Q6HR [facility] Rx#:[id number] Gentamicin 120 mg In 100 Sodium Chloride 0.9% 100 ml @ 103 mls/hr IVPB Q8H [facility] Rx#:[id number] Other: Voiding Method Toilet Toilet Toilet # Voids 2 1 - Exam This is a pleasant 52-year-old female in no acute distress. She is alert and oriented 3. Exam of the bilateral hands reveals improved left hand with less swelling and less erythema. Right hand has less erythema. Fingers are slightly less swollen but she continues to have swelling about the hand on the dorsal and palmar surface. No active drainage noted. She has slight limitation in finger motion secondary to pain and swelling. Neurovascular status the upper extremity is intact. - Labs CBC & Chem 7: 04/26/18 07:16 04/26/18 07:16 Labs: Abnormal Lab Results - Last 24 Hours (Table) 04/26/18 04/26/18 Range/Units 07:16 07:16 RBC 3.41 L (3.80-5.40) m/uL Hgb 10.1 L (11.4-16.0) gm/dL Hct 31.7 L (34.0-46.0) % Creatinine 0.48 L (0.52-1.04) mg/dL Microbiology - Last 24 Hours (Table) 04/23/18 12:46 Blood Culture - Preliminary Blood No Growth after 48 hours 04/24/18 Unknown Gram Stain - Preliminary Hand - Right Wound Culture - Preliminary Assessment and Plan (1) Cellulitis of hand Current Visit: Yes Status: Acute Code(s): L03.119 - CELLULITIS OF UNSPECIFIED PART OF LIMB SNOMED Code(s): 11889446 (2) Dog bite Current Visit: Yes Status: Acute Code(s): W54.0XXA - BITTEN BY DOG, INITIAL ENCOUNTER SNOMED Code(s): 545830277 (3) Laceration of multiple sites of hand and fingers Current Visit: Yes Status: Acute Code(s): S61.419A - LACERATION WITHOUT FOREIGN BODY OF UNSP HAND, INIT ENCNTR; S61.219A - LACERATION W/O FB OF UNSP FINGER W/O DAMAGE TO NAIL, INIT SNOMED Code(s): 490542895 Plan: The clinical and x-ray findings are discussed with the patient. Findings are discussed with Dr. Madrigal. I have reiterated that computed tomography scan was negative for any abscess or fluid collection. We will continue with the IV antibiotics as prescribed. We will continue to follow
[2018-04-26] MEDS ORDERED: RABIES VACCINE (PCEC) 2.5 UNIT KIT IM ONE (09:00)
--- NOTE | 2018-04-26 18:23 | PN ---
PROGRESS NOTE DATE OF SERVICE: 04/26/2018 This 52-year-old woman who was admitted with bilateral hand cellulitis secondary to a dog bite is being closely monitored. The CT scan did not show any focal abscess at this time. The swelling of the left hand was markedly reduced, but the right hand is still persistent but improving. Local soaks have been recommended. Orthopedic Surgery and Infectious Disease are following the patient closely. No chest pain or palpitation. No fever. No rigors. PHYSICAL EXAMINATION: On exam, alert and oriented x3. Pulse 77, blood pressure 128/57, respirations 16, temperature 98.3, pulse ox 96% on room air. HEENT: Conjunctivae normal. Oral mucosa moist. Neck is no jugular venous distention. No carotid bruit. No lymph node enlargement. CARDIOVASCULAR: S1, S2 muffled. RESPIRATION: Breath sounds diminished at the bases. No rhonchi, no crackles. ABDOMEN: Soft, nontender. LEGS: No edema, no swelling. NERVOUS SYSTEM: No focal deficits. EXAMINATION OF THE HANDS: Left hand is improved much excoriations present from the dog bite. Right hand swelling and painful movement of the wrist and other finger joints also present. LAB INVESTIGATION: WBC 6.8, hemoglobin 10.1. ASSESSMENT: 1. Bilateral hand cellulitis, possibly early sepsis secondary to dog bite. 2. Increased WBC. 3. Hyponatremia. 4. Hypercalcemia. 5. History of herniated disc. 6. History of degenerative joint disease. 7. History of nicotine dependence. RECOMMENDATIONS AND DISCUSSION: Recommend to continue the current medications. Continue with monitoring and symptomatic treatment as well as follow with Infectious Disease and Orthopedic Surgery. Continue the broad-spectrum IV antibiotics. Guarded prognosis. Further recommendations to follow. The cultures are negative so far. MMODL / IJN: [id number] /
[2018-04-27] MEDS: AMPICILLIN-SULBACTAM 3 GM in SODIUM CHLORIDE 0.9% 100 ML IVPB SCH ×5 (00:01→23:43)
[2018-04-27] MEDS: KETOROLAC 30 MG/ML 1 ML VIAL IVP SCH ×3 (06:05→12:17)
[2018-04-27] MEDS: HYDROcodone/APAP 10-325MG 1 EACH TAB PO SCH ×4 (06:05→23:31)
--- NOTE | 2018-04-27 07:20 | PN ---
PROGRESS NOTE DATE OF SERVICE: 04/26/2018. REASON FOR FOLLOWUP: Right hand dog bite cellulitis. INTERVAL HISTORY: The patient is afebrile. She is feeling slightly better. The right hand swelling redness and pain has improved. Currently no drainage. Denies having any chest pain, shortness of breath or cough. No abdominal pain, no diarrhea. EXAMINATION: Blood pressure is 115/58 with a pulse of 79, temperature of 98.4. She is 97% on room air. General description is a middle aged female, lying in bed in no distress. Respiratory System: Unlabored breathing. Clear to auscultation anteriorly. Heart S1, S2. Regular rate and rhythm. Extremities: Right hand with some swelling, minimal redness and no drainage. LABS: Hemoglobin is 10.1, white count 6.8. BUN of 9, creatinine 0.48. DIAGNOSTIC IMPRESSION AND PLAN: Patient with right hand dog bite cellulitis. The patient did have a CT that was negative for any abscess. The patient is currently on Unasyn, will be continued. ( ) swelling down and continue supportive care. MMODL / IJN: [id number] /
[2018-04-27] MEDS: HEPARIN SODIUM,PORCINE 5,000 UNIT/ML 1 ML VIAL SQ SCH ×2 (08:17→21:41)
[2018-04-27] MEDS: PANTOPRAZOLE 40 MG TABLET PO SCH (08:17)
[2018-04-27] MEDS: NICOTINE 14MG/24HR PATCH TRANSDERM SCH (08:17)
[2018-04-27 08:31] LABS: Basophils % (A) 0 %; Eosinophils # (A) 0.1 k/uL (0-0.7); Eosinophils % (A) 2 %; HCT 31.8 % (34.0-46.0); HGB 10.2 gm/dL (11.4-16.0); Lymphocytes # (A) 0.8 k/uL (1.0-4.8); Lymphocytes % (A) 14 %; MCH 30.2 pg (25.0-35.0); MCHC 32.2 g/dL (31.0-37.0); Monocytes # (A) 0.4 k/uL (0-1.0); Monocytes % (A) 7 %; Neutrophils # (A) 4.5 k/uL (1.3-7.7); Neutrophils % (A) 76 %; Platelet Count 348 k/uL (150-450); RBC 3.38 m/uL (3.80-5.40); RDW 12.4 % (11.5-15.5); WBC 5.8 k/uL (3.8-10.6)
[2018-04-27 09:14] LABS: Anion Gap 5 mmol/L; Blood Urea Nitrogen 9 mg/dL (7-17); Calcium 9.3 mg/dL (8.4-10.2); Carbon Dioxide 29 mmol/L (22-30); Chloride 106 mmol/L (98-107); Glucose 96 mg/dL (74-99); Potassium 4.6 mmol/L (3.5-5.1); Sodium 140 mmol/L (137-145)
[2018-04-27] MEDS: HYDROmorphone 1 MG/ML 1 ML SYRINGE IVP PRN ×3 (09:15→21:41)
--- NOTE | 2018-04-27 13:17 | P.PN ---
Subjective Progress Note Date: 04/27/18 Principal diagnosis: S/P Dog bite bilateral hands. Cellulitis bilateral hands. This is a 52-year-old female who we are following regarding her bilateral hand cellulitis secondary to multiple dog bites. She continues on Unasyn and gentamicin. She has been performing warm soaks and has K pad. Computed tomography scan of the hand showed no abscess formation. States that the left hand is improved today. She continues to have pain and swelling to the right hand. Objective - Vital Signs Vital signs: Vital Signs Temp 97.9 F 04/27/18 12:13 Pulse 80 04/27/18 12:13 Resp 16 04/27/18 12:13 BP 128/55 04/27/18 12:13 Pulse Ox 99 04/27/18 12:13 Intake & Output 04/26/18 04/27/18 04/27/18 18:59 06:59 18:59 Intake Total 200 100 Balance 200 100 Intake: Intake, IV Titration 200 100 Amount Ampicillin-Sulbactam 3 gm 200 100 In Sodium Chloride 0.9% 100 ml @ 200 mls/hr IVPB Q6HR [facility] Rx#:[id number] Other: Voiding Method Toilet Toilet Toilet # Voids 2 - Exam This is a pleasant 52-year-old female in no acute distress. She is alert and oriented 3. Exam of the bilateral hands reveals improved left hand with less swelling and less erythema. Right hand has less erythema. Fingers are slightly less swollen but she continues to have swelling about the hand on the dorsal and palmar surface. Very slight active drainage noted from a small wound on the dorsum of the hand.. She has slight limitation in finger motion secondary to pain and swelling. Neurovascular status the upper extremity is intact. - Labs CBC & Chem 7: 04/27/18 07:49 04/27/18 07:49 Labs: Abnormal Lab Results - Last 24 Hours (Table) 04/27/18 Range/Units 07:49 RBC 3.38 L (3.80-5.40) m/uL Hgb 10.2 L (11.4-16.0) gm/dL Hct 31.8 L (34.0-46.0) % Lymphocytes # 0.8 L (1.0-4.8) k/uL Microbiology - Last 24 Hours (Table) 04/24/18 Unknown Gram Stain - Final Hand - Right Wound Culture - Final 04/23/18 12:46 Blood Culture - Preliminary Blood No Growth after 72 hours Assessment and Plan (1) Cellulitis of hand Current Visit: Yes Status: Acute Code(s): L03.119 - CELLULITIS OF UNSPECIFIED PART OF LIMB SNOMED Code(s): 63274385 (2) Dog bite Current Visit: Yes Status: Acute Code(s): W54.0XXA - BITTEN BY DOG, INITIAL ENCOUNTER SNOMED Code(s): 037050054 (3) Laceration of multiple sites of hand and fingers Current Visit: Yes Status: Acute Code(s): S61.419A - LACERATION WITHOUT FOREIGN BODY OF UNSP HAND, INIT ENCNTR; S61.219A - LACERATION W/O FB OF UNSP FINGER W/O DAMAGE TO NAIL, INIT SNOMED Code(s): 820223338 Plan: The clinical and x-ray findings are discussed with the patient. Findings are discussed with Dr. Madrigal. I have reiterated that computed tomography scan was negative for any abscess or fluid collection. We will continue with the IV antibiotics as prescribed. We will continue to follow
--- NOTE | 2018-04-27 22:30 | PN ---
PROGRESS NOTE DATE OF SERVICE: 04/27/2018 This 52-year-old woman who was admitted with bilateral hand cellulitis, still has significant swelling and pain on the right hand with some drainage also. The cultures are pending at this time. Negative so far. No chest pain. No palpitations. No fever. PHYSICAL EXAM: Alert and oriented times three. Pulse 80, blood pressure 128/50, respirations 16, temperature 97.9, pulse ox 98% on room air. HEENT: Conjunctivae normal. Oral mucosa is moist. Neck is no jugular venous distention. No carotid bruit. No lymph node enlargement. CARDIOVASCULAR: S1, S2 muffled. Respiration: Breath sounds diminished in the bases. No rhonchi. No crackles. ABDOMEN: Soft, nontender. Legs no edema. NERVOUS SYSTEM: No focal deficits. Examination of the right hand, significant swelling and some drainage also present, but much improved from the admission. LABS: WBC 5.8, hemoglobin 10.2. Other labs are normal. ASSESSMENT: 1. Bilateral hand cellulitis, right more than the left with possibly early sepsis secondary to dog bite, present on admission. 2. Increased WBC. 3. Hyponatremia. 4. Hypocalcemia. 5. History of herniated disc. 6. History of degenerative joint disease. 7. History of nicotine dependence. RECOMMENDATIONS AND DISCUSSION: Continue current medications, management and symptomatic treatment. Continue with the monitoring closely. Follow with Orthopedics and Infectious Disease. Continue the broad-spectrum IV antibiotics. Guarded prognosis because of multiple complex medical issues. Further recommendations to follow. MMODL / IJN: [id number] /
--- NOTE | 2018-04-28 00:15 | PN ---
PROGRESS NOTE DATE OF SERVICE: 04/27/2018. REASON FOR FOLLOWUP: Right hand dog bite cellulitis. INTERVAL HISTORY: The patient is afebrile. She has been breathing comfortably. Denies having any chest pain or shortness of breath, cough, abdominal pain, or any worsening pain to the right hand area and no diarrhea. PHYSICAL EXAMINATION: Her blood pressure is 128/55 with a pulse of 80, temperature 97.9. She is 99% on room air. GENERAL DESCRIPTION: A middle-aged female lying in bed in no distress. RESPIRATORY SYSTEM: Unlabored breathing. Clear to auscultation anteriorly. HEART: S1, S2. Regular rate and rhythm. ABDOMEN: Soft, no tenderness. SKIN: Swelling and redness slightly decreased. LABS: Hemoglobin is 10.8, white count 5.8, BUN of 9,creatinine 0.59. Blood culture has been negative. DIAGNOSTIC IMPRESSION AND PLAN: 1. Patient with right hand dog bite with cellulitis. No evidence of any abscess. Clinically improving on Unasyn. That will be transitioned to oral Augmentin to finish a course of therapy. 2. Patient with dog bite from which the patient is currently getting rabies vaccine. She needs to have 2 more doses, one 04/30/2018 and one on 05/07/2018. We will make sure the patient has scripts for the same, so she can finish series of rabies vaccination. MMODL / IJN: [id number] /
[2018-04-28] MEDS: HYDROcodone/APAP 10-325MG 1 EACH TAB PO SCH ×4 (05:42→23:48)
[2018-04-28] MEDS: AMPICILLIN-SULBACTAM 3 GM in SODIUM CHLORIDE 0.9% 100 ML IVPB SCH ×4 (05:42→23:49)
[2018-04-28 07:31] LABS: Basophils % (A) 0 %; Eosinophils # (A) 0.1 k/uL (0-0.7); Eosinophils % (A) 2 %; HCT 30.3 % (34.0-46.0); HGB 10.1 gm/dL (11.4-16.0); Lymphocytes # (A) 1.1 k/uL (1.0-4.8); Lymphocytes % (A) 23 %; MCH 30.7 pg (25.0-35.0); MCHC 33.4 g/dL (31.0-37.0); MCV 92.1 fL (80.0-100.0); Monocytes # (A) 0.4 k/uL (0-1.0); Monocytes % (A) 9 %; Neutrophils # (A) 2.9 k/uL (1.3-7.7); Neutrophils % (A) 63 %; Platelet Count 345 k/uL (150-450); RBC 3.29 m/uL (3.80-5.40); RDW 12.7 % (11.5-15.5); WBC 4.6 k/uL (3.8-10.6)
[2018-04-28 07:39] LABS: Anion Gap 7 mmol/L; Blood Urea Nitrogen 8 mg/dL (7-17); Calcium 9.4 mg/dL (8.4-10.2); Carbon Dioxide 27 mmol/L (22-30); Chloride 105 mmol/L (98-107); Glucose 91 mg/dL (74-99); Potassium 4.6 mmol/L (3.5-5.1); Sodium 139 mmol/L (137-145)
[2018-04-28] MEDS: NICOTINE 14MG/24HR PATCH TRANSDERM SCH (09:41)
[2018-04-28] MEDS: PANTOPRAZOLE 40 MG TABLET PO SCH (09:42)
[2018-04-28] MEDS: HEPARIN SODIUM,PORCINE 5,000 UNIT/ML 1 ML VIAL SQ SCH ×2 (09:42→21:23)
[2018-04-28] MEDS: HYDROmorphone 1 MG/ML 1 ML SYRINGE IVP PRN ×3 (09:50→21:23)
--- NOTE | 2018-04-28 11:00 | P.PN ---
Subjective Progress Note Date: 04/28/18 Principal diagnosis: S/P Dog bite bilateral hands. Cellulitis bilateral hands. This is a 52-year-old female who we are following regarding her bilateral hand cellulitis secondary to multiple dog bites. She continues on Unasyn and gentamicin. She has been performing warm soaks and has K pad. Computed tomography scan of the hand showed no abscess formation. States that the left hand is improved today. She continues to have pain and swelling to the right hand. Objective - Vital Signs Vital signs: Vital Signs Temp 98.4 F 04/28/18 04:49 Pulse 68 04/28/18 04:49 Resp 16 04/28/18 04:49 BP 112/59 04/28/18 04:49 Pulse Ox 96 04/28/18 04:49 Intake & Output 04/27/18 04/28/18 04/28/18 18:59 06:59 18:59 Intake Total 100 1230 Balance 100 1230 Intake: Intake, IV Titration 100 300 Amount Ampicillin-Sulbactam 3 gm 100 300 In Sodium Chloride 0.9% 100 ml @ 200 mls/hr IVPB Q6HR [facility] Rx#:[id number] Oral 930 Other: Voiding Method Toilet Toilet # Voids 2 2 - Exam This is a pleasant 52-year-old female in no acute distress. She is alert and oriented 3. Exam of the bilateral hands reveals improved left hand with less swelling and less erythema. Right hand has less erythema. Fingers are slightly less swollen but she continues to have swelling about the hand on the dorsal and palmar surface. Very slight active drainage noted from a small wound on the dorsum of the hand.. She has slight limitation in finger motion secondary to pain and swelling. Neurovascular status the upper extremity is intact. - Labs CBC & Chem 7: 04/28/18 06:55 04/28/18 06:55 Labs: Abnormal Lab Results - Last 24 Hours (Table) 04/28/18 Range/Units 06:55 RBC 3.29 L (3.80-5.40) m/uL Hgb 10.1 L (11.4-16.0) gm/dL Hct 30.3 L (34.0-46.0) % Microbiology - Last 24 Hours (Table) 04/23/18 12:46 Blood Culture - Preliminary Blood No Growth after 96 hours Assessment and Plan (1) Cellulitis of hand Current Visit: Yes Status: Acute Code(s): L03.119 - CELLULITIS OF UNSPECIFIED PART OF LIMB SNOMED Code(s): 91148439 (2) Dog bite Current Visit: Yes Status: Acute Code(s): W54.0XXA - BITTEN BY DOG, INITIAL ENCOUNTER SNOMED Code(s): 217791459 (3) Laceration of multiple sites of hand and fingers Current Visit: Yes Status: Acute Code(s): S61.419A - LACERATION WITHOUT FOREIGN BODY OF UNSP HAND, INIT ENCNTR; S61.219A - LACERATION W/O FB OF UNSP FINGER W/O DAMAGE TO NAIL, INIT SNOMED Code(s): 751297581 Plan: The clinical and x-ray findings are discussed with the patient. Findings are discussed with Dr. Madrigal. I have reiterated that computed tomography scan was negative for any abscess or fluid collection. She may be discharged from an orthopedic standpoint. Antibiotics per infectious disease at discharge. She is to follow-up as needed.
[2018-04-28 11:10] VITALS: BMI 21.6
--- NOTE | 2018-04-28 17:31 | PN ---
PROGRESS NOTE DATE OF SERVICE: 04/28/2018 This 52-year-old woman who was admitted with bilateral hand cellulitis also had early sepsis. No chest pain. No palpitations. No fever. The patient has some drainage from the right arm. No chest pain. No palpitations. No fever. PHYSICAL EXAMINATION: Alert and oriented x3. Pulse 72, blood pressure 112/66, respiration 18, temperature 99.4, pulse ox 97% on room air. HEENT: Conjunctivae normal. NECK: No jugular venous distention. CARDIOVASCULAR SYSTEM: S1, S2 muffled. RESPIRATORY SYSTEM: Breath sounds diminished at the bases. No rhonchi. No crackles. ABDOMEN: Soft, non-tender. LEGS: No edema. No swelling. EXAMINATION OF RIGHT HAND: Swelling present. NERVOUS SYSTEM: No focal deficit. LABS: WBC 4.6, hemoglobin 10.1. ASSESSMENT: 1. Bilateral hand cellulitis, right more than the left, with possible early sepsis secondary to dog bite, present on admission. 2. Increased white count. 3. Hyponatremia. 4. Hypocalcemia. 5. History of herniated disc. 6. History of degenerative joint disease. 7. History of nicotine dependence. RECOMMENDATIONS AND DISCUSSION: At this time I recommend to continue current medication, continue with the monitoring, symptomatic treatment. Otherwise at this time we will monitor the patient closely. Continue the antibiotics. Guarded prognosis. Further recommendations to follow. MMODL / IJN: [id number] /
--- NOTE | 2018-04-28 21:22 | PN ---
PROGRESS NOTE DATE OF SERVICE: 04/28/2018. REASON FOR FOLLOW UP: Right hand dog bite cellulitis. INTERVAL HISTORY: The patient is afebrile. She is breathing comfortably. The right hand swelling and redness has improved. No nausea, vomiting and no diarrhea with antibiotic therapy. EXAMINATION: Blood pressure is 112/66, pulse of 72, temperature 99.4, she is 97% on room air. General description is a middle aged female lying in bed in no distress. Respiratory system: Unlabored breathing, clear to auscultation anteriorly. Heart S1, S2. Regular rate and rhythm. ABDOMEN: Soft. Right hand swelling and redness slightly decreased. No drainage. LAB: Culture has been negative. DIAGNOSTIC IMPRESSION AND PLAN: Patient with a right hand dog bite cellulitis seemed to have shown clinical improvement. She will be finishing therapy with oral Augmentin 875 b.i.d. with the prescription has been sent to the pharmacy. She also needs 2 more doses of rabies vaccine on 04/30 and 05/07 and a written prescription has been provided. The patient receive the vaccine here or in the health department. MMODL / IJN: [id number] /
[2018-04-28 21:43] VITALS: RESP 16
[2018-04-29] MEDS: HYDROmorphone 1 MG/ML 1 ML SYRINGE IVP PRN ×3 (01:28→09:35)
[2018-04-29] MEDS: AMPICILLIN-SULBACTAM 3 GM in SODIUM CHLORIDE 0.9% 100 ML IVPB SCH ×2 (05:41→12:34)
[2018-04-29] MEDS: HYDROcodone/APAP 10-325MG 1 EACH TAB PO SCH ×2 (06:15→12:35)
[2018-04-29 08:09] LABS: Basophils % (A) 0 %; Eosinophils # (A) 0.2 k/uL (0-0.7); Eosinophils % (A) 2 %; HCT 35.9 % (34.0-46.0); HGB 11.9 gm/dL (11.4-16.0); Lymphocytes # (A) 1.4 k/uL (1.0-4.8); Lymphocytes % (A) 21 %; MCH 30.5 pg (25.0-35.0); MCHC 33.1 g/dL (31.0-37.0); MCV 92.1 fL (80.0-100.0); Mean Platelet Volume 6.6; Monocytes # (A) 0.5 k/uL (0-1.0); Monocytes % (A) 7 %; Neutrophils # (A) 4.6 k/uL (1.3-7.7); Neutrophils % (A) 67 %; Platelet Count 439 k/uL (150-450); RBC 3.89 m/uL (3.80-5.40); RDW 12.5 % (11.5-15.5); WBC 6.9 k/uL (3.8-10.6)
[2018-04-29] MEDS: PANTOPRAZOLE 40 MG TABLET PO SCH (09:30)
[2018-04-29] MEDS: HEPARIN SODIUM,PORCINE 5,000 UNIT/ML 1 ML VIAL SQ SCH (09:31)
[2018-04-29] MEDS: NICOTINE 14MG/24HR PATCH TRANSDERM SCH (09:31)
[2018-04-29 12:26] VITALS: BP 111/58; PULSE 71; TEMP 98.7
--- NOTE | 2018-04-29 16:29 | DS ---
DISCHARGE SUMMARY DATE OF SERVICE: 04/29/2018 FINAL DIAGNOSES: 1. Bilateral hand cellulitis, right more than the left, with possible early sepsis secondary to dog bite, present on admission. 2. Increased white count. 3. Hyponatremia. 4. Hypocalcemia. 5. History of herniated disc. 6. History of degenerative joint disease. 7. History of nicotine dependence. DISCHARGE DISPOSITION: The patient will be discharged in stable condition with guarded prognosis. HISTORY OF PRESENT ILLNESS: This 52-year-old woman with a past medical history of multiple medical problems was admitted with bilateral hand cellulitis secondary to dog bite. Patient was treated with IV antibiotics. Patient improved significantly. CT scan did not show evidence of any abscess formation. Orthopedics and Infectious Disease, Dr. Madrigal and Dr. Ellington, saw the patient. The patient improved significantly. Patient will be discharged in stable condition with guarded prognosis. On exam, vitals are stable. CARDIOVASCULAR SYSTEM: S1, S2 muffled. ABDOMEN: Soft. NERVOUS SYSTEM: No focal deficit. EXAMINATION OF HANDS: Right hand minimal swelling present. Left hand much improved. DISCHARGE ADVICE AND MEDICATIONS: 1. Diet is cardiac. 2. Activity limited until followup. 3. No smoking. 4. Follow up with Dr. Tolbert in 2 to 3 days. 5. Follow up with Dr. Madrigal and Dr. Ellington as recommended. 6. [place] 10 mg q.6 p.r.n. 7. Augmentin 875 mg p.o. b.i.d. for 10 days. 8. Habitrol 14 daily. Once again, the patient will be discharged in stable condition with guarded prognosis. MMODL / IJN: [id number] /
--- NOTE | 2018-04-29 18:26 | PN ---
PROGRESS NOTE DATE OF SERVICE: 04/29/2018. REASON FOR FOLLOWUP: Right hand dog bite cellulitis. INTERVAL HISTORY: The patient is afebrile. She is breathing comfortably. Denies having any chest pain. No shortness of breath or cough. No nausea or vomiting. No abdominal pain. No diarrhea. EXAMINATION: Blood pressure 111/58 with a pulse of 71, temperature 98.7. She is 97% on room air. General description is a middle-aged female lying in bed in no distress. Respiratory system: Unlabored breathing. Clear to auscultation anteriorly. Heart S1, S2. Regular rate and rhythm. Abdomen soft, no tenderness. Right hand swelling and redness improved. LABS: Hemoglobin 11.9, white count 6.9. DIAGNOSTIC IMPRESSION AND PLAN: Patient with right hand dog bite, cellulitis. The patient seems to have shown clinical improvement. Plan to finish therapy with oral Augmentin 875 b.i.d. for about 10 days with prescription has been sent to the pharmacy. The patient did have rabies vaccination 2 doses one will be 04/30 and next one will be 05/07. Prescription was provided to the patient. Continue supportive care. MMODL / IJN: [id number] /
[2018-04-30] MEDS ORDERED: RABIES VACCINE (PCEC) 2.5 UNIT KIT IM ONE (09:00)
[2018-05-07] MEDS ORDERED: RABIES VACCINE (PCEC) 2.5 UNIT KIT IM ONE (09:00)
== END 2018-04-29 15:25 | disposition home or self-care (01) | DRG 872 ==
LOC: EC 11:42 → 3NMEDONC 16:10
PROVIDERS: ADMIT Internal Medicine; ATTEND Internal Medicine
PROC: 3E0234Z Introduction of Serum, Toxoid and Vaccine into Muscle, Percutaneous Approach (ICD-10-PCS; principal; 2018-04-23)
DX: A41.9 Sepsis, unspecified organism (principal); E87.0 Hyperosmolality and hypernatremia; E87.1 Hypo-osmolality and hyponatremia; L03.114 Cellulitis of left upper limb; L03.113 Cellulitis of right upper limb; E83.51 Hypocalcemia; E83.52 Hypercalcemia; F17.210 Nicotine dependence, cigarettes, uncomplicated; I45.10 Unspecified right bundle-branch block; M19.042 Primary osteoarthritis, left hand; M19.041 Primary osteoarthritis, right hand; S61.218A Laceration without foreign body of other finger without damage to nail, initial encounter; S61.412A Laceration without foreign body of left hand, initial encounter; S61.411A Laceration without foreign body of right hand, initial encounter; W54.0XXA Bitten by dog, initial encounter; S61.451A Open bite of right hand, initial encounter; S61.452A Open bite of left hand, initial encounter; Z20.3 Contact with and (suspected) exposure to rabies; Z23 Encounter for immunization; Z29.14 Encounter for prophylactic rabies immune globulin; Z80.0 Family history of malignant neoplasm of digestive organs; Z82.49 Family history of ischemic heart disease and other diseases of the circulatory system; Z83.3 Family history of diabetes mellitus; G89.29 Other chronic pain; M54.89 Other dorsalgia; M19.90 Unspecified osteoarthritis, unspecified site
CPT/HCPCS: 36415; 80048; 80053; 80170; 83605; 85025; 85610; 85730; 87040; 87070; 87205; 90375; 90471; 90675; 90715; 93005; 96365; 96372; 96375; 96376; 99284

== ENCOUNTER → 2018-05-09 | Outpatient (CLI) | payer BC ==
[2018-05-09 14:21] LABS: Basophils # (A) 0.1 k/uL (0-0.2); Basophils % (A) 1 %; Eosinophils # (A) 0.1 k/uL (0-0.7); Eosinophils % (A) 1 %; HCT 39.3 % (34.0-46.0); HGB 12.5 gm/dL (11.4-16.0); Lymphocytes # (A) 2.3 k/uL (1.0-4.8); Lymphocytes % (A) 29 %; MCH 28.9 pg (25.0-35.0); MCHC 31.8 g/dL (31.0-37.0); MCV 91.1 fL (80.0-100.0); Mean Platelet Volume 6.8; Monocytes # (A) 0.3 k/uL (0-1.0); Monocytes % (A) 4 %; Neutrophils % (A) 64 %; Platelet Count 558 k/uL (150-450); RBC 4.32 m/uL (3.80-5.40); RDW 12.5 % (11.5-15.5); WBC 7.8 k/uL (3.8-10.6)
== END | disposition home or self-care (01) ==
LOC: LABWHC1 13:58
PROVIDERS: ATTEND Internal Medicine
DX: L03.90 Cellulitis, unspecified (principal)
CPT/HCPCS: 36415; 85025

== ENCOUNTER → 2018-09-01 | Outpatient (CLI) | payer BC ==
--- NOTE | 2018-09-01 16:09 | MR ---
EXAMINATION TYPE: MR lumbar spine wo con DATE OF EXAM: 09/01/2018 COMPARISON: 05/16/2016 HISTORY: 53-year-old female back pain, Lumbago TECHNIQUE: Multiplanar, multisequence images of the lumbar spine were acquired. FINDINGS: Vertebral body heights are preserved. No suspicious bone marrow replacement. Conus medullaris is normal. No prevertebral or paravertebral soft tissue abnormality. There is degenerative grade 1 retrolisthesis at L2-L3, L3-L4, L4-L5, relatively similar to 05/16/2016 . Moderate to advanced multilevel degenerative disc disease characterized by a desiccated, narrowed, an d diffusely bulging discs, relatively similar to prior exam. Ligamentum flavum thickening and hypertrophic facet arthropathy is present throughout. Underlying mild congenital spinal canal stenosis especially in the mid lumbar spine with AP canal dim ension 1.1 cm. At T12-L1, there is diffuse disc bulge impressing on the ventral thecal sac but not causing significa nt spinal canal stenosis. There is facet arthropathy particularly on the right contributing to a mode rate right neuroforaminal stenosis, relatively stable. At L1-L2, mild bulging disc and mild facet degenerative change without significant canal or foraminal stenosis. At L2-L3, hypertrophic facet arthropathy with diffuse disc bulge and trace grade 1 retrolisthesis. Th ere is mild overall spinal canal stenosis stable to slightly increased with mild right and mild-to-mo derate left neuroforaminal stenosis, slightly increased on the left. At L3-L4, diffuse disc bulge with hypertrophic facet arthropathy, ligamentum flavum thickening, and t race grade 1 retrolisthesis. There is mild overall spinal canal stenosis with moderate left and mild right neuroforaminal stenosis, relatively similar. At L4-L5, diffuse disc bulge with hypertrophic facet arthropathy, ligamentum flavum thickening, and t race grade 1 retrolisthesis. There is mild overall narrowing of the spinal canal with moderate bilate ral neural foraminal stenosis, relatively similar prior exam. At L5-S1, diffuse disc bulge with facet arthropathy. Changes associated similar severe right and mode rate left neuroforaminal stenosis without spinal canal stenosis. IMPRESSION: 1. Moderate multilevel degenerative disc disease. Additional hypertrophic facet arthropathy and scatt ered ligamentum flavum thickening. 2. Changes are superimposed on a mild congenital spinal canal narrowing of the mid lumbar spine. 3. Overall stable mild spinal canal stenoses at L2-L3, L3-L4, and L4-L5, possibly slightly increased at L2-L3. 4. Variable bilateral neuroforaminal stenoses as outlined above, severe right and moderate left at L5 -S1, relatively stable. 5. Additional levels of neuroforaminal stenoses include moderate on both sides at L4-L5, moderate on the left at L3-L4, and slightly increased mild to moderate left neural foraminal stenosis at L2-L3.
== END | disposition home or self-care (01) ==
LOC: RADMRIMAIN 08:42
PROVIDERS: ATTEND Psychiatry & Neurology Neurology
DX: M48.061 Spinal stenosis, lumbar region without neurogenic claudication (principal); M48.07 Spinal stenosis, lumbosacral region; M51.36 Other intervertebral disc degeneration, lumbar region; M46.96 Unspecified inflammatory spondylopathy, lumbar region; M24.28 Disorder of ligament, vertebrae
CPT/HCPCS: 72148

== ENCOUNTER → 2020-01-29 | Outpatient (CLI) | payer BC | END | disposition home or self-care (01) | LOC: LABWHC1 14:58 | PROVIDERS: ATTEND Emergency Medicine | DX: Z20.828 Contact with and (suspected) exposure to other viral communicable diseases (principal) | CPT/HCPCS: U0003; C9803 ==

== ENCOUNTER → 2020-10-28 | Outpatient (CLI) | payer BC ==
--- NOTE | 2020-11-02 14:21 | MM ---
Reason for exam: screening (asymptomatic). Last mammogram was performed 3 years ago. History: Patient is postmenopausal. Physical Findings: A clinical breast exam by your physician is recommended on an annual basis and results should be correlated with mammographic findings. MG Screening Mammo w CAD Bilateral CC and MLO view(s) were taken. Prior study comparison: October 30, 2017, bilateral MG screening mammo w CAD. October 05, 2016, bilateral MG screening mammo w CAD. The breast tissue is heterogeneously dense. This may lower the sensitivity of mammography. ASSESSMENT: Benign, BI-RAD 2 RECOMMENDATION: Routine screening mammogram of both breasts in 1 year.
== END | disposition home or self-care (01) ==
LOC: RADMAMWWP 13:07
PROVIDERS: ATTEND Internal Medicine
DX: Z12.31 Encounter for screening mammogram for malignant neoplasm of breast (principal); Z78.0 Asymptomatic menopausal state
CPT/HCPCS: 77067

== ENCOUNTER → 2021-11-23 | Outpatient (CLI) | payer BC ==
--- NOTE | 2021-11-24 07:51 | MM ---
Reason for Exam: Screening (asymptomatic). Last mammogram was performed 1 year(s) and 1 month(s) ago. Patient History: Menarche at age 13. First Full-Term at age 21. Postmenopausal. Risk Values: [place] 5 year model risk: 1.1%. NCI Lifetime model risk: 7.4%. Prior Study Comparison: 10/05/2016 Bilateral Screening Mammogram, [facility]. 10/30/2017 Bilateral Screening Mammogram, [facility]. 10/28/2020 Bilateral Screening Mammogram, [facility]. Tissue Density: The breast tissue is heterogeneously dense. This may lower the sensitivity of mammography. Findings: Analyzed By CAD. Asymmetric density outer central right breast. Additional views are recommended. Benign-appearing calcifications bilaterally. Overall Assessment: Incomplete: need additional imaging evaluation, BI-RAD 0 Management: Diagnostic Mammogram of the right breast. A clinical breast exam by your physician is recommended on an annual basis and results should be correlated with mammographic findings. Electronically signed and approved by: Caesar Ford M.D. Radiologis
== END | disposition home or self-care (01) ==
LOC: RADMAMWWP 08:17
PROVIDERS: ATTEND Internal Medicine
DX: Z12.31 Encounter for screening mammogram for malignant neoplasm of breast (principal); Z78.0 Asymptomatic menopausal state
CPT/HCPCS: 77063; 77067

== ENCOUNTER → 2021-12-26 | Outpatient (CLI) | payer BC ==
--- NOTE | 2021-12-26 09:24 | MM ---
Reason for Exam: Additional evaluation requested from abnormal screening. Last screening mammogram was performed 1 month(s) ago. Patient History: Menarche at age 13. First Full-Term at age 21. Postmenopausal. Risk Values: [place] 5 year model risk: 1.1%. NCI Lifetime model risk: 7.4%. Tissue Density: Right: The breast tissue is heterogeneously dense. This may lower the sensitivity of mammography. Findings: Analyzed By CAD. Benign-appearing calcifications. Upon compression there is dispersement of the area of density. No suspicious mass or calcifications noted. Overall Assessment: Probably benign, BI-RAD 3 Management: Diagnostic Mammogram of the right breast in 6 months. A clinical breast exam by your physician is recommended on an annual basis and results should be correlated with mammographic findings. This exam should not preclude additional follow-up of suspicious palpable abnormalities. Results were given to the patient verbally at the time of exam. Electronically signed and approved by: Nikko Ureña M.D. Radiologis
== END | disposition home or self-care (01) ==
LOC: RADMAMWWP 08:56
PROVIDERS: ATTEND Internal Medicine
DX: R92.8 Other abnormal and inconclusive findings on diagnostic imaging of breast (principal); Z78.0 Asymptomatic menopausal state
CPT/HCPCS: 77061; 77065